=== PATIENT | female | born 1945 | race Caucasian/White ===

== ENCOUNTER 2018-05-29 18:26 | Emergency (ER) | END 2018-05-29 22:22 | disposition home or self-care (01) ==

== ENCOUNTER 2018-06-04 19:19 | Emergency (ER) | payer BC ==
[~2018-06-04] VITALS: Ht 157.5 cm; Wt 65.0 kg
[~2018-06-04 19:19] MED LIST: CEPH-443 PO; CYCL10TA7 PO; DONEPEZIL PO; GEMFIBROZIL PO; HYDR-4011 PO; LORATADINE PO; METFORMIN PO; NAPROXEN PO; NITR-58 PO; OMEPRAZOLE PO; PRED20TA PO; TRAM50TA2 PO
[2018-06-04 19:28] VITALS: BP 117/68; PULSE 99; RESP 17; Ht 157.5 cm; Wt 65.0 kg
[2018-06-04] MEDS ORDERED: KETOROLAC 30 MG INJ IM STA (20:15)
--- NOTE | 2018-06-04 20:16 | ERD ---
ER Documentation Chief Complaint Chief Complaint L leg pain x1 week, seen for same. no fall HPI 72-year-old female, returns to the emergency department, complaining of persistent left hip pain, she is requesting a shot of Toradol, the patient states that she got significant improvement of the pain for 3 days. She denies fevers, no chills, no distal weakness, no numbness or tingling. ROS All systems reviewed and are negative except as per history of present illness. Medications Home Meds Active Scripts Hydrocodone/Acetaminophen ([place] 5-325 Tablet) 1 Each Tablet, 1 TAB PO QHS PRN for PAIN, #7 TAB Prov:JAYA DE LA ROSA MD 06/04/18 Ibuprofen* (Motrin*) 400 Mg Tab, 400 MG PO Q8, #30 TAB Prov:JAYA DE LA ROSA MD 06/04/18 Acetaminophen* (Tylenol*) 325 Mg Tablet, 2 TAB PO Q8 PRN for PAIN AND OR ELEVATED TEMP, #20 TAB Prov:JAYA DE LA ROSA MD 06/04/18 Nitrofurantoin Monohyd Macrocr* (Macrobid*) 100 Mg Capsr, 100 MG PO BID for 14 Days, CAP Prov:JAYA DE LA ROSA MD 05/29/18 Hydrocodone/Acetaminophen ([place] 5-325 Tablet) 1 Each Tablet, 1 TAB PO QHS PRN for PAIN, #7 TAB Prov:JAYA DE LA ROSA MD 05/29/18 Prednisone* (Prednisone*) 20 Mg Tab, 40 MG PO DAILY for 4 Days, TAB Prov:JAYA DE LA ROSA MD 05/29/18 Cephalexin* (Keflex*) 500 Mg Capsule, 500 MG PO QID for 7 Days, CAP Prov:JOANNA WALTER MD 05/12/16 Cyclobenzaprine Hcl* (Cyclobenzaprine Hcl*) 10 Mg Tablet, 10 MG PO TID, #20 TAB Prov:JOANNA WALTER MD 11/15/15 Tramadol HCl (Tramadol HCl) 50 Mg Tablet, 50 MG PO Q4 PRN for PAIN, #20 TAB Prov:JOANNA WALTER MD 11/15/15 Reported Medications [Donepezil] No Conflict Check, PO 09/01/15 [Naproxen] No Conflict Check, PO 09/01/15 [Omeprazole] No Conflict Check, PO 09/01/15 [Loratadine] No Conflict Check, PO 09/01/15 [Metformin] No Conflict Check, PO 09/01/15 [Gemfibrozil] No Conflict Check, PO 09/01/15 Allergies Allergies: Coded Allergies: Penicillins (Unverified Allergy, Unknown, 09/01/15) PMhx/Soc History of Surgery: Yes (HYSTERECTOMY) Anesthesia Reaction: No Hx Neurological Disorder: Yes (SCIATICA) Hx Respiratory Disorders: Yes (SEASONAL ALLERGIES) Hx Cardiac Disorders: Yes (HTN, HIGH CHOLESTEROL) Hx Psychiatric Problems: Yes (DEPRESSION) Hx Miscellaneous Medical Probl: No (DIABETES) Hx Alcohol Use: No Hx Substance Use: No Hx Tobacco Use: No Smoking Status: Never smoker Physical Exam Vitals Vital Signs Date Temp Pulse Resp B/P (MAP) Pulse Ox O2 O2 Flow FiO2 Time Delivery Rate 06/04/18 98.0 99 17 117/68 97 19:28 (84) Physical Exam Const: No acute distress Head: Atraumatic Eyes: Normal Conjunctiva ENT: Normal External Ears, Nose and Mouth. Neck: Full range of motion. No meningismus. Resp: Clear to auscultation bilaterally Cardio: Regular rate and rhythm, no murmurs Abd: Soft, non tender, non distended. Normal bowel sounds Skin: No petechiae or rashes Back: No midline or flank tenderness Ext: No cyanosis, or edema Neur: Awake and alert Psych: Normal Mood and Affect Results 24 hrs Current Medications Medications Dose Sig/Madelyn Start Time Status Last (Trade) Ordered Route PRN Stop Time Admin Dose Reason Admin Ketorolac 30 mg ONCE STAT 06/04/18 DC 06/04/18 Tromethamine IM 20:15 06/04/18 20:29 (Toradol) 20:18 Procedures/MDM Differential diagnosis include but not limited to: lumbar sprain/strain, sciatica, herniated disk, UTI less likely pyelo, kidney stone. Neurovascular exam grossly intact. no clinical findings suggestive of acute infectious process, no acute deformity, no edema, no rashes. Physical examination and clinical presentation consistent most likely with acute on chronic back pain with sciatica. During the ED course the patient received treatment with Toradol IM presenting overall improvement of the symptoms. Results and clinical impression discussed with the patient who agrees with management. The patient is stable to be treated outpatient and will be discharged home with recommendations and close monitoring The patient was instructed to follow up with the primary care provider in the next 48h. If symptoms persist, worsen or new symptoms develop, then patient should return to the ED immediately. Instructions explained and given to patient with acknowledgment and demonstrated understanding. Disclaimer: Inadvertent spelling and grammatical errors are likely due to EHR/dictation software use and do not reflect on the overall quality of patient care. Also, please note that the electronic time recorded on this note does not necessarily reflect the actual time of the patient encounter. Departure Diagnosis: Primary Impression: Lumbar back pain with radiculopathy affecting left lower extremity Condition: Stable Additional Instructions: Muchas renny por [facility] para leon servicio. Esperamos que en leon visita a la fred de emergencia leon problema medico haya sido solucionado y que se sienta mucho mejor. Para estar seguros que leon mejoria sigue en proceso, le pedimos el favor de hacer karen nidia de seguimiento medico con leon doctor primario en los proximos 2-4 barron. Lleve con usted estos documentos y las medicinas recetadas. Si valentina sintomas empeoran, NO SE ESPERE, por favor regrese a fred de emergencia INMEDIATAMENTE. En aurelia que usted no tenga un mdico de atencin primaria: Llame al mdico o clnica comunitaria de referencia que aparece abajo layton las horas de consultorio para hacer karen nidia para que le vean. CLINICAS: [facility] [phone] [facility] [phone] [facility] [phone] [facility] [phone] [facility] [phone] [facility]. [phone] MD Jun 04, 2018 20:16
[2018-06-04] MEDS ORDERED: ACET325T33 PO (21:24)
[2018-06-04] MEDS ORDERED: HYDR-4011 PO (21:24)
[2018-06-04] MEDS ORDERED: IBUP-1561 PO (21:24)
== END 2018-06-04 21:37 | disposition home or self-care (01) ==
LOC: FTE 19:19
DX: M54.16 Radiculopathy, lumbar region (principal); I10 Essential (primary) hypertension; E11.9 Type 2 diabetes mellitus without complications; Z79.84 Long term (current) use of oral hypoglycemic drugs
CPT/HCPCS: 72100; 73510; 96372; 99284; J1885

== ENCOUNTER 2019-04-02 11:50 | Emergency (ER) | payer BC ==
[~2019-04-02] VITALS: Ht 170.2 cm; Wt 63.7 kg
[~2019-04-02 11:50] MED LIST changes: +ACET325T33 PO; +DONE5TAB7 PO; +GEMF600T8 ORAL; +IBUP-1561 PO; +MEMA10TA20 ORAL; +METF-849 ORAL; +NAPR-985 PO; +TRAZ-188 ORAL
[2019-04-02 11:53] VITALS: BP 168/87; PULSE 86; RESP 20; Ht 170.2 cm; Wt 63.7 kg
== END 2019-04-02 14:14 | disposition home or self-care (01) ==
LOC: E/R 11:50
DX: R20.2 Paresthesia of skin (principal); I10 Essential (primary) hypertension
CPT/HCPCS: 70450; 80048; 85025; 93005